=== PATIENT | male | born 1975 | race Caucasian/White ===

== ENCOUNTER 2017-02-28 12:00 | Emergency (ER) | payer BC, OTHER ==
--- OUTSIDE RECORDS SUMMARY | 2017-02-28 12:30 | XMS REPORT | Clinical Summary ---
:1975 Author Organization [facility] [place] [address] Care Team Providers Name Role Phone Unavailable Primary Care Provider Unavailable Source Comments This disclosure is being made pursuant to the [employer] program and maynot contain all information available regarding this patient.[facility] Allergies Not on File Current Medications Be aware that medications may not be up to date as of this document. Alwaysverify current medications with the patient. Not on file Active Problems Not on file Social History Tobacco Use Types Packs/Day Years Used Date Never Assessed Sex Assigned at Date Recorded Not on file Last Filed Vital Signs Not on file Plan of Treatment Health Maintenance Due Date Last Done Comments Retired-Pertussis Vaccine Adult 1994 Retired-Tetanus Vaccine Adult 1994 Retired-INFLUENZA VACCINE 04/03/2015 Results Not on filefrom Last 3 Months
--- NOTE | 2017-02-28 12:34 | ERNOTE ---
Upper Extremity HPI - General Time Seen by Provider: 02/28/17 12:21 Source: patient - Immun/Allergies/Home Medications Immunizations: IMMUNIZATION HX Immunizations Up to Date No History of Influenza Vaccine No Hx Pneumococcal Vaccination No Allergies/Adverse Reactions: Allergies Allergy/AdvReac Type Severity Reaction Status Date / Time aspirin AdvReac Mild rash Verified 10/13/14 10:43 Home Medications: HOME MEDICATIONS Lisinopril/Hydrochlorothiazide [Lisinopril-Hctz 20-25 mg Tab] 1 each PO DAILY [Last Taken 10/20/14] - History of Present Illness Narrative: Patient was throwing a bag of household trash in the landfill when he felt something cutting his right index finger, denies any other injury Date (Duration): 02/28/17 Time (Timing): 11:30 Location of Incident: other Review of Systems - Review of Systems Constitutional: Absent: recent illness, fever ENT: Absent: sore throat Respiratory: Absent: shortness of breath Cardiology: Absent: chest pain Gastrointestinal/Abdominal: Absent: nausea, abdominal pain Genitourinary: Present: no symptoms reported Neurological: Absent: weakness, numbness - Patient's Past Medical History Patient History - Medical: No pertinent hx, Obesity Patient History - Cardiac/Respiratory: Hypertension Patient History - Cancer: No Hx of Cancer Patient History - Surgical Procedures: Noncontributory, T & A, Orthopedic Patient History - Other: None - Social History Living Situations: home Abuse History: No History of abuse Psych History: No pertinent hx Smoking Status: Never smoker Alcohol Use: none Drug Use: none - Immunizations Immunizations Up to Date: No Hx Pneumococcal Vaccination: No History of Influenza Vaccine: No Physical Exam - Physical Exam General Appearance: Present: wd/wn, alert, no apparent distress, obese Respiratory: Present: no respiratory distress Extremity Exam: Present: normal except - - 2cm laceration palmar side of distal phalanx right index finger Neurological Exam: Present: alert, oriented, normal mood/affect Skin Exam: Present: normal color, warm/dry ED Progress - Vital Signs Patient's Vital Signs:: I have reviewed the patient's vital signs. Vital Signs: Vital Signs 02/28/17 12:05 Temperature 36.4 C L Pulse Rate 70 Respiratory 18 Rate Blood Pressure 182/98 O2 Sat by Pulse 97 Oximetry - Progress/Reassessment Chief Complaint: Laceration Procedures Right 2nd Digit Anesthesia: 2% Lidocaine, Digital Block Length of Repair/Wound (cm): 2 Wound's Depth/Shape: into muscle, linear Wound Explored: clean, to base, no foreign body Wound Intervention: irrigated w/saline Distal NVT: other - decreased sensation ulnar side of finger tip distal to laceration Suture Size/Type: 4-0, nylon Number of Sutures: 5 Layer Closure: Simple Departure Clinical Impression: Finger laceration Qualifiers: Encounter type: initial encounter Finger: index finger Damage to nail status: without damage Foreign body presence: without foreign body Laterality: right Qualified Code(s): S61.210A - Laceration without foreign body of right index finger without damage to nail, initial encounter - Departure Disposition: Home self-care Condition: Good Instructions: Laceration Care, Adult, [id number] Additional Instructions: keep the finger dry and clean, have the sutures removed in 10-12 days Referrals: Kelsie Messer MD [Primary Care Provider] -
[2017-02-28] MEDS ORDERED: DIPHTH,PERTUSS(ACELL),TET VAC 0.5 ML VIAL IM ONE ×2 (12:50→12:56)
[2017-02-28 13:09] VITALS: BP 181/99
== END 2017-02-28 13:00 | disposition home or self-care (01) ==
LOC: ER 12:00
PROC: 0JQJ0ZZ Repair Right Hand Subcutaneous Tissue and Fascia, Open Approach (ICD-10-PCS; principal; 2017-02-28)
DX: S61.210A Laceration without foreign body of right index finger without damage to nail, initial encounter (principal); Z23 Encounter for immunization